=== PATIENT | male | born 1950 | race Caucasian/White ===

== ENCOUNTER → 2021-06-27 11:21 | Outpatient (BNVA) | payer MEDICARE, BC, SELFPAY | PROVIDERS: Family Provider Family Medicine; PCP Family Medicine; Visit Provider Family Medicine | DX: Z00.00 Encounter for general adult medical examination without abnormal findings (principal); E78.5 Hyperlipidemia, unspecified; I10 Essential (primary) hypertension | CPT/HCPCS: 80053; 80061 ==

== ENCOUNTER → 2022-07-03 08:46 | Outpatient (BNVA) | payer MEDICARE, BC, SELFPAY | PROVIDERS: Family Provider Family Medicine; PCP Family Medicine; Visit Provider Family Medicine | DX: E78.5 Hyperlipidemia, unspecified (principal); I10 Essential (primary) hypertension | CPT/HCPCS: 80053; 80061 ==

== ENCOUNTER 2022-07-12 09:03 | Outpatient (CLI) | payer MEDICARE, BC, SELFPAY ==
--- NOTE | 2022-07-12 09:12 | XR_ITS ---
WS: [id number] Exam: XR shoulder RT min 2V* [id number] Date/Time of Exam: 07/12/2022 9:16 AM Reason For Exam: shoulder pain No acute fracture or dislocation. Mild degenerative change at the glenohumeral joint and AC joint. 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 Normal soft tissues. XR/XR shoulder RT min 2V* [id number] IMPRESSION: 1. Mild degenerative changes. No fracture or dislocation.
== END 2022-07-12 09:04 | disposition home or self-care (01) ==
LOC: RAD 09:08
PROVIDERS: PCP Family Medicine; Visit Provider Family Medicine
DX: M25.511 Pain in right shoulder (principal)
CPT/HCPCS: 73030

== ENCOUNTER → 2022-07-30 07:58 | Outpatient (BNVA) | payer MEDICARE, BC, SELFPAY | PROVIDERS: PCP Family Medicine; Visit Provider Surgery | DX: Z80.0 Family history of malignant neoplasm of digestive organs (principal); Z12.11 Encounter for screening for malignant neoplasm of colon | CPT/HCPCS: 99203 ==

== ENCOUNTER 2022-08-22 09:04 | Day surgery (SDC) | payer MEDICARE, BC, SELFPAY ==
[2022-08-20 09:42] VITALS: BMI 24.3
[2022-08-22 09:30] VITALS: BP 147/93; PULSE 69; RESP 20; TEMP 36.2; O2SAT 96
[2022-08-22] MEDS: sodium chloride 0.9% 1,000 ML 30 ML IV (09:40)
--- NOTE | 2022-08-22 09:40 | P.ANESASSM_ITS ---
Pre-Anesthetic Assessment Height/Weight: Height 1.7 m Weight 70.307 kg Temp Pulse Resp BP Pulse Ox 97.2 F L 69 20 H 147/93 96 08/22/22 09:30 08/22/22 09:30 08/22/22 09:30 08/22/22 09:30 08/22/22 09:30 Operation Date: 08/22/22 10:15 Proposed Procedures p [id number] colon,Z80.0(Not Applicable) - Dwight Murphy DO Familial anesthetic complications: None Was Beta Mary Grace taken within 24 hours: N/A Was Clonidine taken within 24 hours: N/A Last intake: Intake Last Liquid Date 08/21/22 Last Liquid Time 22:00 Last Solid Date 08/20/22 Last Solid Time 18:00 Social No alcohol and No tobacco Exam alert, oriented x 3, clear to auscultation bilaterally and regular rate & rhythm Airway Mallampati: Class II Dentition: full CV/HEM Hypertension Metabolic Hyperlipidemia Anesthetic Plan ASA status: 2 Anesthesia: MAC Risk of > 500 ml blood loss (7ml/kg in children): No Medications/Allergies Home Medications Medication Instructions Recorded Confirmed Last Taken Type lisinopril 5 mg tablet 5 mg PO DAILY 08/20/22 08/20/22 08/20/22 23:00 History simvastatin 20 mg tablet 20 mg PO DAILY 08/20/22 08/20/22 08/20/22 23:00 History Allergies Allergy/AdvReac Type Severity Reaction Status Date / Time No Known Allergies Allergy Verified 07/30/22 08:04 [facility] Anesthesia Medical History (Updated 08/18/22 @ 21:06 by Wilder Shah MD) Hyperlipidemia Hypertension Surgical History (Updated 07/30/22 @ 09:15 by Dwight Murphy DO) History of hip replacement left Hx of appendectomy Hx of colonoscopy 10 yrs ago Hx of hernia repair Hx of tonsillectomy Family History Mother Cancer colon cancer Social History Smoking and tobacco status: never smoked Alcohol intake: current Alcohol intake frequency: 0-2 Drinks per Day Alcohol type: wine Data Anesthesia Cardiac Studies: No Data to Display
--- NOTE | 2022-08-22 10:51 | W.PM.OPSUD ---
Surgery/Procedure H&P Update DATE OF PROCEDURE: August 22, 2022 DATE H&P PERFORMED: 07/30/22 H&P UPDATE INFORMATION: I have reviewed H&P completed within last 30 days, I have examined patient prior to procedure and No changes to prior documentation PLANNED PROCEDURE: Operation Date: 08/22/22 10:15 Proposed Procedures p 31194 colon,Z80.0(Not Applicable) - Dwight Murphy, DO
[2022-08-22 11:29] VITALS: BP 114/72; PULSE 64; RESP 16; O2SAT 96
--- NOTE | 2022-08-22 11:30 | ANE.PACU2 ---
Inpatient post-anesthesia follow up: Airway intact: Yes Vital signs: Temperature 97.2 F Pulse Rate 61 Respiratory Rate 18 Blood Pressure 130/85 Pulse Oximetry 97 Oxygen Delivery Me thod Room Air Oxygen Flow Rate Fraction of Inspir ed Oxygen Hydration adequate: Yes Nausea and vomiting: No Pain level: 1 Mental status: Baseline
[2022-08-22 11:38] VITALS: BP 130/85; PULSE 61; RESP 18; O2SAT 97
== END 2022-08-22 11:55 | disposition home or self-care (01) ==
PROVIDERS: PCP Family Medicine; Visit Provider Surgery
PROC: 0DJD8ZZ Inspection of Lower Intestinal Tract, Via Natural or Artificial Opening Endoscopic (ICD-10-PCS; CPT 45378; principal; 2022-08-22 10:15)
DX: Z12.11 Encounter for screening for malignant neoplasm of colon (principal); I10 Essential (primary) hypertension; E78.5 Hyperlipidemia, unspecified; K57.30 Diverticulosis of large intestine without perforation or abscess without bleeding; K64.8 Other hemorrhoids; Z80.0 Family history of malignant neoplasm of digestive organs
CPT/HCPCS: 45385; 88305; J2704; J7030

== ENCOUNTER → 2022-09-04 15:50 | Outpatient (BNVA) | payer MEDICARE, BC, SELFPAY | PROVIDERS: PCP Family Medicine; Visit Provider Surgery | DX: Z09 Encounter for follow-up examination after completed treatment for conditions other than malignant neoplasm (principal) | CPT/HCPCS: 99212 ==

== ENCOUNTER → 2023-07-08 08:15 | Outpatient (BNVA) | payer MEDICARE, BC, SELFPAY | PROVIDERS: PCP Family Medicine; Visit Provider Family Medicine | DX: I10 Essential (primary) hypertension (principal); E78.5 Hyperlipidemia, unspecified | CPT/HCPCS: 80053; 80061 ==

== ENCOUNTER 2024-04-27 09:26 | Emergency (ER) | payer MEDICARE, BC, SELFPAY ==
[2024-04-27 09:38] VITALS: BP 144/88; PULSE 87; TEMP 36.4; O2SAT 96; BMI 25.0
--- NOTE | 2024-04-27 10:27 | W.ED.LOWEXIN ---
HPI - Extremity Injury (Lower) General: Chief Complaint: Extremity Injury, Lower Stated Complaint: rt leg calf inj Time Seen by Provider: 04/27/24 09:27 Source: patient Mode of arrival: ambulatory Limitations: no limitations History of Present Illness: Patient is a nice 73-year-old male presents to ED today with a complaint of right calf pain. Patient states 2 days ago he was pushing against a wall when he immediately heard a pop involving the right calf. He has had pain since. Possible mild edema. He has not noticed any ecchymosis. No other injuries or complaints at this time. complaint: leg injury Onset (ago): day(s) Place: home Severity: moderate Relieving factors: immobilization Exacerbating factors: weight bearing Associated symptoms: Reports no associated symptoms Other symptoms: none Related Data Home Medications ?Medication ?Instructions ?Recorded ?Confirmed lisinopril 5 mg tablet 5 mg PO QPM 04/27/24 04/27/24 simvastatin 20 mg tablet 20 mg PO QPM 04/27/24 04/27/24 Previous Rx's ?Medication ?Instructions ?Recorded meclizine 25 mg tablet 25 mg PO TID PRN dizziness #60 tabs 02/12/24 Allergies Allergy/AdvReac Type Severity Reaction Status Date / Time No Known Allergies Allergy Verified 04/27/24 09:43 Review of Systems Card: Denies: chest pain Resp: Denies: dyspnea Musc: Reports: extremity pain; Denies: joint pain or joint swelling Neuro: Denies: numbness in extremities, sensory changes or difficulty walking PFSH ED PFSH: Medical History Hyperlipidemia Hypertension Surgical History Hx of appendectomy Hx of tonsillectomy History of hip replacement left Hx of hernia repair Hx of colonoscopy 10 yrs ago Family History Mother Cancer colon cancer Social History Smoking and tobacco/nicotine status: never used tobacco/nicotine Alcohol intake: current Alcohol intake frequency: 0-2 Drinks per Day Alcohol type: wine Physical Exam Const: COMMON NORMALS: no acute distress, average body habitus, no limitations, healthy appearing and well nourished Extremity: COMMON NORMALS: normal to inspection, full ROM, capillary refill normal, no joint enlargement, no clubbing, cyanosis or edema and no pedal edema GENERAL: Yes normal exam except as noted RIGHT LOWER EXTREMITY: Yes lower leg (TTP R calf; no obvious edema; no ecchymosis) Right lower leg: Yes neurovascular exam (normal) Course Vital Signs: Vital signs: Vital Signs Temperature 97.6 F 04/27/24 09:38 Pulse Rate 87 04/27/24 09:38 Blood Pressure 144/88 04/27/24 09:38 Pulse Oximetry 96 04/27/24 09:38 Oxygen Delivery Me thod Room Air 04/27/24 09:38 MDM - Extremity Injury (Lower) Medical Decision Making History and physical exam consistent with a right calf sprain/strain/minor tear. Unlikely his gastrocnemius given mild symptoms clinically. This most likely related to soleus or plantaris muscle. Patient will be placed in a cam boot with heel lift for comfort and will follow-up with orthopedics for further evaluation with probable conservative management and/or physical therapy. Medical Records I reviewed the patient's medical records. No radiology studies performed this visit Discharge Plan Discharge Patient Disposition: Home Clinical Impression: Strain of right calf muscle Condition: Stable Prescriptions: No Action meclizine 25 mg tablet 25 mg PO TID PRN (Reason: dizziness) Qty: 60 3RF Rx Instructions: use for benign positional vertigo simvastatin 20 mg tablet 20 mg PO QPM lisinopril 5 mg tablet 5 mg PO QPM Discharge Orders: Discharge ED (Routine); Ordered 04/27/24 Ordered By: Venice Crum Referrals: Wilder Shah MD [Primary Care Provider] - Activity Restrictions/Additional Instructions: As we discussed, wear the cam boot with heel lift for comfort. You may ice and elevate the extremity. Discussed using [id number] analgesics to help with discomfort. Case management will set you up with orthopedics for further evaluation and treatment. Print Language: Venezuelan Coding Level of Care Code ED Behavioral Health Associate for Telma De La Torre
[2024-04-27 11:23] VITALS: BP 144/88; PULSE 87; O2SAT 96
--- NOTE | 2024-04-28 07:59 | DCPLANNER ---
Message sent to Ortho for follow up on calf sprain/strain/tear.
== END 2024-04-27 11:23 | disposition home or self-care (01) ==
PROVIDERS: Emergency Provider Physician Assistant; PCP Family Medicine
DX: S86.811A Strain of other muscle(s) and tendon(s) at lower leg level, right leg, initial encounter (principal); E78.5 Hyperlipidemia, unspecified; I10 Essential (primary) hypertension; X58.XXXA Exposure to other specified factors, initial encounter
CPT/HCPCS: 97760; 99282; L3332; L4361

== ENCOUNTER → 2024-04-29 09:45 | Outpatient (BNVA) | payer MEDICARE, BC, SELFPAY | PROVIDERS: PCP Family Medicine; Visit Provider Podiatrist Foot & Ankle Surgery | DX: S86.811A Strain of other muscle(s) and tendon(s) at lower leg level, right leg, initial encounter (principal); S96.811A Strain of other specified muscles and tendons at ankle and foot level, right foot, initial encounter; X58.XXXA Exposure to other specified factors, initial encounter | CPT/HCPCS: 99203 ==

== ENCOUNTER → 2024-07-08 08:01 | Outpatient (BNVA) | payer MEDICARE, BC, SELFPAY | PROVIDERS: PCP Family Medicine; Visit Provider Family Medicine | DX: I10 Essential (primary) hypertension (principal); E78.5 Hyperlipidemia, unspecified; Z00.00 Encounter for general adult medical examination without abnormal findings | CPT/HCPCS: 80053; 80061; 84153 ==

== ENCOUNTER → 2024-10-26 09:05 | Outpatient (BNVA) | payer MEDICARE, BC, SELFPAY | PROVIDERS: PCP Family Medicine; Visit Provider Family Medicine | DX: I10 Essential (primary) hypertension (principal); E78.5 Hyperlipidemia, unspecified | CPT/HCPCS: 80061 ==